=== PATIENT | female | born 1955 | race Caucasian/White ===

== ENCOUNTER → 2017-04-19 | Outpatient (CLI) | payer MEDICARE, MEDICAID ==
[~2017-04-19] MED LIST: ACE3 PO; ACE325 PO; ALE70 PO; AMIT-108 PO; ANU28T RC; ARIP5TAB28 PO; ATOR20TA22 PO; BAC10 PO; BACOUD TP; BEN5 PO; BISA10SU62 RC; CALC-762 PO; CALC1TAB24 PO; CEF300 PO; CEFD125S23; CHOL1CAP PO; CRAN500C12 PO; DOCU-194 PO; DULO30CA35 PO; DULO60CA51 PO; ESTR0.5T16 PO; EYEL1MED2 TP; FERR240T18 PO; GLIP10TA26 PO; GLY/85CR2 TP; GLY5 PO; GUAI-549 PO; HYDR-317 PO; HYDR28.415 TP; IRO150 PO; LACT10SO PO; LACTULOSE; LOM PO; LOPE-84 PO; LOR5 PO; LOSA50TA72 PO; MENT118G; METF-420 PO; METR250 PO; MIR; MIR PO; MOM PO; MULT-813 PO; MYLANTA SUPREME PO; NAP250 PO; NAPR220C11 PO; NITR-105 PO; OMEG-11 PO; OMEP-153 PO; OXYGEN INH; PHEN200T32 PO; PIOG30TA3 PO; PRAM28.33 RC; PREMARIN PO; RABE20TA33 PO; SEE LIST ON CHART; SIMV-42 PO; SITA100T9 PO; SITA1TAB17 PO; TOLN108P TP; TRA50 PO; VAL80 PO; [UNRECOGNIZED DRUG - CODE] DT; [UNRECOGNIZED DRUG - CODE] TP; [UNRECOGNIZED DRUG - OTHER]
--- NOTE | 2017-04-19 15:19 | RADIOLOGY IMAGING REPORT ---
FACILITY: [facility] - [place] PATIENT NAME: Tamra Wild : 1955 MR: [id number] V: [id number] EXAM DATE: ORDERING PHYSICIAN: EVGENY ARMENDARIZ TECHNOLOGIST: Location: [facility] - [place], [place] Patient: Tamra Wild : 1955 Visit/Account:[id number] Date of Sevice: 04/19/2017 2 VIEWS CHEST INDICATION: Cough. COMPARISON: 11/23/2008. FINDINGS: Cardiac silhouette remains mildly enlarged and somewhat eccentric abutting low lung volumes. Mediasti nal silhouette and pulmonary vessels within normal limits. The interstitial lungs are are mild eccentric from low lung volumes. No focal consolidation. There is no pneumothorax or pleural effusion. No nodule. Upper abdomen is unremarkable. No acute bony abnormality. Postsurgical changes to the lower cervical spine without sequelae. IMPRESSION: 1. Stable mild enlarged cardiac silhouette without discrete edema or infiltrate. Report Dictated By: Rohan Park at 04/19/2017 3:13 PM Report E-Signed By: Rohan Park at 04/19/2017 3:15 PM WSN:[id number]
== END ==
LOC: RAD 14:18
PROVIDERS: ATTEND Family Medicine
DX: R05 Cough (principal)
CPT/HCPCS: 71046

== ENCOUNTER 2017-08-25 10:53 | Outpatient (RCR) | payer MEDICARE, MEDICAID ==
[~2017-08-25 10:53] MED LIST changes: -BEN5 PO; +BENZ0.5T19 PO; -PIOG30TA3 PO; +PIOG30TA71 PO
--- NOTE | 2017-08-25 17:35 | Medical Nutrition Therapy ---
Nutrition Anthropometrics Weight (Pounds): 179 BMI: 36.5 Jarred Nutrition Score: Jarred Nutrition Risk Score: Dietary Referral Nutrition Risk Factors: Nutrition Risk Comment: Physical Findings Physical Appearance: Obese BMI 30-39 Skin Appearance Skin Appearance: Edema Edema Location Modifier: Edema Location: Type of Edema: Degree of Edema: Gastrointestinal Symptoms GI Symtoms: Tube Present: Bowel Sounds: Recent Bowel Pattern: Stool Characteristics: Nutritional Education Nutrition Education Topic: Weight Loss Diet Learning Readiness: Little Interest (pt showed little interest but caregivers were interested) Response to Teaching: Verbalize understanding (caregivers) Teaching Recipient: Patient, Primary Caregiver Nutrition Counseling: [facility] pt attended session on nutrition to assist with wt loss with diabetes. Pt did not show interest in session but care givers were interested. Discussed importance of correct portion of foods to assist with wt loss. Provided Exchange list diet with emphasis on food groups and how to incorporate this in main meal plan. Majority of session was spent developing healthy weekly meal plan with care givers. Care givers will f/u with meal ideas which will be reviewed by RD. Goal is to provide 4 week menu that works with pt's nutrtional needs. Nutrition Monitoring & Eval RD Patient Assessment Time: [address] Assessment Type: RD Re-Assessment Nutritional Comment: Provided 60 minutes MNT for diabetes with wt loss desired Copies To Copies to: JEFFREY ARAMBULA MD, BETH Jun 20, 2018 17:35
== END 2017-09-29 ==
LOC: DIET 10:53
PROVIDERS: ATTEND Psychiatry & Neurology Psychiatry
DX: Z71.3 Dietary counseling and surveillance (principal); E11.9 Type 2 diabetes mellitus without complications; F25.9 Schizoaffective disorder, unspecified; F79 Unspecified intellectual disabilities; Z68.35 Body mass index [BMI] 35.0-35.9, adult
CPT/HCPCS: 97802

== ENCOUNTER → 2018-01-31 | Outpatient (CLI) | payer MEDICARE, MEDICAID ==
[~2018-01-31] MED LIST changes: -DOCU-194 PO; +DOCU100C56 PO; +GLIP-179 PO; -GLIP10TA26 PO; -LOSA50TA72 PO; +LOSA50TA74 PO
--- NOTE | 2018-02-01 16:42 | RADIOLOGY IMAGING REPORT ---
FACILITY: [facility] PATIENT NAME: LORELEI CHEN : [id number] MR: [id number] V: [id number] EXAM DATE: [id number] ORDERING PHYSICIAN: MARTHA GUZMAN TECHNOLOGIST: Berkley Ruiz PROCEDURE:BILATERAL DIGITAL SCREENING MAMMOGRAM WITH CAD ASSISTED INTERPRETATION COMPARISON:Prior mammograms 01/25/14, 12/20/15, 12/12/14, 12/26/13. INDICATIONS:SCREENING FINDINGS: The patient received bilateral CC views of both breasts in addition to 2 Left MLO views and a Right XCC view sense a Right MLO view could not be obtained. Moderately heterogeneous fibroglandular tissue is seen throughout the breasts. The parenchymal pattern has remained stable allowing for difference in mammographic technique & patient positioning. There is no evidence of malignant appearing mass, malignant appearing calcifications or other secondary sign of malignancy in either breast. DIAGNOSTIC CATEGORY 1--NEGATIVE. RECOMMENDATIONS: ROUTINE MAMMOGRAM AND CLINICAL EVALUATION. IMPRESSION: BIRADS 1: Negative. No significant abnormality is seen. Dictated by: Shaneka Solano M.D. on 01/31/2018 at 16:31 Transcribed by: OLU on 02/01/2018 at 8:57 Approved by: Shaneka Solano M.D. on 02/01/2018 at 16:41 [facility]
== END ==
LOC: MAMO 06:58
PROVIDERS: ATTEND Nurse Practitioner Family
DX: Z12.31 Encounter for screening mammogram for malignant neoplasm of breast (principal)
CPT/HCPCS: 77063; 77067

== ENCOUNTER → 2018-04-18 | Outpatient (CLI) | payer MEDICARE, MEDICAID ==
[~2018-04-18] MED LIST changes: -LOSA50TA74 PO; +LOSA50TA80 PO
--- NOTE | 2018-04-18 12:51 | RADIOLOGY IMAGING REPORT ---
[place] [facility] [place] NAME[place] Tamra Wild : 1955 MR: [id number] V: [id number] EXAM DATE: ORDERING PHYSICIAN: DORINDA CRUZ TECHNOLOGIST: Location: [facility] - [place] Patient: Tamra Wild : 1955 Visit/Account:[id number] Date of Sevice: 04/18/2018 KUB SINGLE VIEW ABDOMEN INDICATION: Constipation, distention COMPARISON: August 09, 2015 FINDINGS: Two frontal views obtained. Unchanged postsurgical clip in the right upper abdomen. No organomegaly or abnormal calcifications. No dilated bowel loops. No acute osseous abnormality. Mod erate to large volume colonic stool. Chronic irregularity of the bilateral ischial tuberosities. IMPRESSION: Moderate to large volume colonic stool. Report Dictated By: Clay Barrios MD at 04/18/2018 12:45 PM Report E-Signed By: Clay Barrios MD at 04/18/2018 12:47 PM WSN:[id number]
== END ==
LOC: RAD 10:59
PROVIDERS: ATTEND Nurse Practitioner Family
DX: K59.00 Constipation, unspecified (principal)
CPT/HCPCS: 74018

== ENCOUNTER 2018-05-11 10:29 | Outpatient (RCR) | payer MEDICARE, MEDICAID ==
--- NOTE | 2018-02-16 14:52 | PT INITIAL EVALUATION ---
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 She had wound care and so had to stop pool therapy for a while. The PT's that work with Gustavo (an [facility] resident) aren't able to pick her up so she's come to [facility] for PT. Radha is her [facility] aide and relates Gustavo was a Frances lift transfer for all transfers and is non- ambulatory. Gustavo does talk but is shy today. REHAB PROBLEM LIST: Decreased ROM Decreased Strength Impaired Transfers Decreased Mobility PREVIOUS MEDICAL HISTORY: NIDDM, depression, CTR. Right-handed. OCCUPATION: Gustavo likes to color and work with her hands and misses pool therapy. OBJECTIVE: Posture: Wheel chair sitting posture ~ 40 degrees reclined, able to pull herself to 25 deg. reclines. L forefoot inverted, R forefoot adductus ROM: AROM: R hand opening to 0 deg. MTP's, wrist ext. 20, elbow extension 65 degrees, shoulder [id number] deg flexion, 80 deg. abduction. L hand opening to -40 deg. MTP's, flexor tone, wrist ext. 0 deg., tone, elbow extension 45 deg., tone, shoulder flexion 80 degrees, abd. 45 degrees, all tight soft tissue restrictions. PROM hips abd. 20 deg., flexion R 110 deg., L 90 deg., extension. -25 deg. B Strength: Knee extension R 15 deg., L no AROM extension. Special Tests: B UE flexor synergy postures. Negative B hip scour for joint pain. Mobility: Gustavo was able to grasp the Frances transfer bar with both hands, pull herself from 60 degrees reclined to about 30 deg. trunk flexion. She has difficulty WS with rotation L and R to help the aide get the sling under her ishial tuberosities and thighs. She can provide min. assist rolling R/L slightly both seated and supine to show unweighting of her back and pelvis. Supine resisted trunk rotation 1/3 trunk rotation. Balance: No sitting balance today. ASSESSMENT: Tamra Wild presents with contractures, flexor tone, potential to reduce dependency during transfers to improve bone loading, improve muscle balance for ability to WS in her wheelchair for pressure unloading. She was cooperative with BRYANT PRABHAKAR and gentle supine resistance training. Short Term Goals 4 weeks: Gustavo pulls herself forward to 0 deg. trunk flexion to assist with sliding the Frances sling, rolls R and L supine with mod. assist of one. 8 weeks: Gustavo demonstrate self-trunk rotation and WS L and R holding the Frances transfer bar to assist sliding the Frances sling under her ishial tuberosities, holding an aide's hands to unload ishial tuberosities, rolls supine/sidelie R/L with min. assist to unload pressures in bed. Patient's Goals Move more. PLAN: Patient to be seen for Manual Therapy Strengthening/condition Ice/Heat Range of Motion Spinal Stabilization Stretching Neuromuscular Re-ed Therapeutic Activities 2x/Week for 2 Months Thank you for this referral. If you have any questions, comments, or concerns about this report or plan, please contact me at . WILBERT
--- NOTE | 2018-03-23 17:55 | PT PLAN OF CARE ---
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 trunk flexion to assist with sliding the Frances sling progressing), rolls R and L supine with mod. assist of one (not met). 8 weeks: Gustavo demonstrate self-trunk rotation and WS L and R holding the Frances transfer bar to assist sliding the Frances sling under her ishial tuberosities (not met), holding an aide's hands to unload ishial tuberosities (progressing), rolls supine/sidelie R/L with min. assist to unload pressures in bed (not met). PATIENT'S GOAL: Move more. (progressing) Patient Compliance: Excellent Prognosis: Excellent Reasons for continuing therapy: S: Gustavo relates she feels better after PT. Posture: Wheel chair sitting posture 20 degrees reclined, able to pull herself to 0 degrees with hand held assist now. ROM: AROM: R elbow extension 35 degrees, shoulder flexion 90 deg flexion, 80 deg. abduction. L hand opening still the same with flexor tone limiting ROM, elbow extension 30 deg., shoulder flexion 80 degrees, abd. 55 degrees, all tight soft tissue restrictions. PROM hips abd. 30 deg., flexion R 110 deg., L 100 deg., extension remains -25 deg. B Strength: Knee extension 0 deg. B. Gustavo can now pull with lats and scapular retractors to assist supine to sit. Special Tests: B UE flexor synergy postures. Negative B hip scour for joint pain. Mobility: Gustavo can now pull with lats and scapular retractors to assist supine to sit. She needs mod/max assist to WS L and R. She tolerates sitting upright 15 to 23 minutes with mod. assist to max. assist of one with her feet supported. She can punch her L and R UE [address] her coat sleeve and now pulls herself to 25 deg past neutral so the back of her coat or sling can be tucked behind her. A/P: Gustavo Wild is progressing with assisting in mobility, transfers and dressing, which helps with digestion, ease of caregiver burden and bone loading. If you agree, we'll continue 2x/week another month to goals set, then decide where to go from there. Thank you. WILBERT
[~2018-05-11 10:29] MED LIST changes: -NAPR220C11 PO; +NAPR220C62 PO
== END 2018-05-17 ==
LOC: PT 10:29
PROVIDERS: ATTEND Nurse Practitioner Family
DX: G82.20 Paraplegia, unspecified (principal)
CPT/HCPCS: 97162

== ENCOUNTER 2018-07-07 13:03 | Emergency (ER) | payer MEDICARE, MEDICAID ==
--- NOTE | 2018-07-07 13:06 | ER Report ---
History and Physical Time Seen By MD: 13:05 HPI/ROS CHIEF COMPLAINT: Here for cath ua/cx HISTORY OF PRESENT ILLNESS: Patient is a 62-year-old female who is a resident of the [facility]. According to care worker there is some concern that the patient may have a urinary tract infection. They noted with her going to the bathroom this morning she had some strong foul-smelling urine. She is complaining of some lower abdominal pain. Patient is followed by Dr. Contreras and she was referred to the emergency department for us to obtain a urinalysis and urine culture. He doesn't seem to be eating normally perhaps some slight constipation, no vomiting or diarrhea and no fevers. Allergies: Coded Allergies: granisetron (Unverified Allergy, Unknown, 08/09/15) ibuprofen (Unverified Allergy, Unknown, 08/09/15) lisinopril (Verified Allergy, Unknown, 08/09/15) tetracycline (Verified Allergy, Unknown, 08/09/15) Uncoded Allergies: ADVIL TABLET (Allergy, Unknown, 08/16/06) GANTRISAN (Allergy, Unknown, 08/16/06) METALS (Allergy, Unknown, 08/16/06) PEANUTS (Allergy, Unknown, 08/16/06) Home Meds Active Scripts Cephalexin 500 Mg Tab (KEFLEX 500 MG TAB) 500 Mg Tablet, 500 MG PO Q6H, #20 TAB 0 Refills TAKE ONE TABLET BY MOUTH EVERY SIX HOURS Prov:RYDER GARCIA MD 07/07/18 Reported Medications Estradiol (ESTRADIOL) 0.5 Mg Tablet, 0.5 MG PO DAILY 09/03/16 Ferrous Gluconate (FERROUS GLUCONATE) 240 Mg Tablet, 240 MG PO DAILY 09/03/16 Losartan Potassium (LOSARTAN POTASSIUM) 50 Mg Tablet, 50 MG PO QDAY 09/03/16 Benztropine Mesylate (BENZTROPINE MESYLATE) 0.5 Mg Tab, 0.5 MG PO BID, TAB 09/03/16 Duloxetine Hcl (CYMBALTA) 30 Mg Capsule.dr, 30 MG PO QDAY 09/03/16 Atorvastatin Calcium (LIPITOR) 20 Mg Tablet, 1 TAB PO QDAY, TAB 09/03/16 Bisacodyl (BISACODYL) 10 Mg Supp.rect, 10 MG RC PRN for CONSTIPATION, SUPP.RECT 6/29/17 Pramoxine Hcl/Mineral Oil/Znox (TUCKS HEMORRHOIDAL OINTMENT) 28.3 Gm Oint...g., 28.3 GM RC PRN for PAIN 10/16/14 Tolnaftate (TINACTIN) 108 Gm Powder, 108 GM TP BID 10/16/14 Skin Cleanser (PERIFRESH) 3,840 Ml Cleanser, 3840 ML TP BID 10/16/14 Eyelid Cleanser Combination #3 (OCUSOFT LID SCRUB PLUS) 1 Each Med..pad, 1 EACH TP QWEEK 10/16/14 Naproxen Sodium (NAPROXEN SODIUM) 220 Mg Capsule, 220 MG PO PRN for PAIN, CAPSULE 10/16/14 [Mylanta Coplay ] No Conflict Check, 20 ML PO PRN for DYSPEPSIA 10/16/14 Hydrocortisone/Aloe Vera (HYDROCORTISONE 1% OINTMENT) 28 Gm Oint...g., 28 GM TP PRN for ITCHING 10/16/14 Docusate Sodium (DOC-Q-LACE) 100 Mg Capsule, 100 MG PO QDAY, CAPSULE 10/16/14 Cranberry Extract (CRANBERRY CONCENTRATE) 500 Mg Capsule, 500 MG PO QDAY, CAP BHARATHI 10/16/14 Multivitamin (CHEWABLE-CHRISSY) 1 Each Tab.chew, 1 EACH PO QDAY, TAB.CHEW 10/16/14 Menthol (BIOFREEZE) 118 Ml Gel..ml. 10/16/14 Bacitracin (BACITRACIN ZINC) 0.9 Gm Oint, 0.9 GM TP PRN for INFECTION 10/16/14 Gly/Dimeth/Petrolat,Wht/Water (CETAPHIL MOISTURIZING CREAM) 85 Gm Cream..g., 85 GM TP BID 10/16/14 [Aquaphillic Cream] No Conflict Check 10/16/14 Calcium Carbonate/Mag Hydrox (ANTACID CHEWABLE TABLET) 1 Each Tab.chew, 2 EACH PO PRN for DYSPEPSIA, TAB.CHEW 10/16/14 Pioglitazone Hcl (PIOGLITAZONE HCL) 30 Mg Tablet, 30 MG PO QDAY 10/16/14 Glipizide (GLIPIZIDE ER) 10 Mg Tab.er.24, 10 MG PO QDAY 10/16/14 Sitagliptin Phos/Metformin Hcl (JANUMET 50-1,000 MG TABLET) 1 Each Tablet, 1 EACH PO BID 10/16/14 Oxygen (Oxygen) 2 L Inha, 2 L INH PRN, 0 Refills 10/30/10 Omeprazole (Omeprazole) 20 Mg Tablet.dr, 20 MG PO, 0 Refills 10/30/10 Acetaminophen (Tylenol) 325 Mg Tab, 650 MG PO PRN, 0 Refills EVERY SIX HOURS PRN 10/30/10 [Premarin ] No Conflict Check, 0.3 MG PO DAILY, 0 Refills 10/30/10 Calcium Carbonate/Vitamin D3 (Calcium 500 + D Tablet) 1 Tab Tablet, 1 TAB PO BID, 0 Refills 10/30/10 Aripiprazole (Abilify) 5 Mg Tablet, 7 MG PO DAILY, 0 Refills 10/30/10 Amitriptyline Hcl (Elavil) 50 Mg Tablet, 50 MG PO DAILY, 0 Refills 10/30/10 Baclofen (Lioresal) 10 Mg Tab, 10 MG PO TID, 0 Refills 10/30/10 Duloxetine Hcl (Cymbalta) 60 Mg Capsule.dr, 60 MG PO DAILY, 0 Refills 10/30/10 Docosahexanoic Acid/Epa (Fish Oil 1,000 Mg Capsule) 1 Cap Capsule, 1 CAP PO BID, 0 Refills 10/30/10 Polyethylene Glycol (Miralax) 17 Gm Powd, PO DAILY, 0 Refills 10/30/10 Past Medical/Surgical History Constipation, type II diabetes, hypercholesterolemia Hx Smoking: No Smoking Status: Never Smoker Exposure to Second Hand Smoke?: No Hx Substance Use Disorder: No Hx Alcohol Use: No Constitutional Vital Sign - Last 24 Hours 07/07/18 13:21 Temp 98.2 Pulse 101 Resp 20 B/P (MAP) 139/71 Pulse Ox 90 O2 Delivery Room Air Intake and Output0 07/07/18 07/07/18 07/08/18 15:00 23:00 07:00 Output Total 7 ml Balance -7 ml Physical Exam General Appearance: The patient is alert, has no immediate need for airway protection and no current signs of toxicity. [ ] Eyes: Pupils equal and round no injection. Respiratory: Chest is non tender, lungs are clear to auscultation. Cardiac: regular rate and rhythm Gastrointestinal: Abdomen is protuberant; no obvious signs of tenderness to palpation. Musculoskeletal: Extremities warm and well perfused. Medical Decision Making Data Points Laboratory Hematology Test 07/07/18 13:50 Urine Color Yellow Urine Clarity Cloudy Urine pH 5.0 pH (4.8-9.5) Urine Specific [place] 1.017 Urine Protein 30 mg/dL (NEGATIVE) Urine Glucose (UA) Negative mg/dL (NEGATIVE) Urine Ketones Negative mg/dL (NEGATIVE) Urine Blood Moderate (NEGATIVE) Urine Nitrite Negative (NEGATIVE) Urine Bilirubin Negative (NEGATIVE) Urine Urobilinogen 2.0 mg/dL (0.2-1.9) Urine Leukocyte Esterase Large (NEGATIVE) Urine RBC 26 /HPF (0-2/HPF) Urine WBC 130 /HPF (0-5/HPF) Urine WBC Clumps Mod /HPF Urine Squamous Epithelial Cells Many /LPF (NONE-FEW) Urine Bacteria Many /HPF (NONE-FEW) Urine Mucus None /HPF (NONE-FEW) Chemistry Test 07/07/18 13:50 Urine Color Yellow Urine Clarity Cloudy Urine pH 5.0 pH (4.8-9.5) Urine Specific Clinton 1.017 Urine Protein 30 mg/dL (NEGATIVE) Urine Glucose (UA) Negative mg/dL (NEGATIVE) Urine Ketones Negative mg/dL (NEGATIVE) Urine Blood Moderate (NEGATIVE) Urine Nitrite Negative (NEGATIVE) Urine Bilirubin Negative (NEGATIVE) Urine Urobilinogen 2.0 mg/dL (0.2-1.9) Urine Leukocyte Esterase Large (NEGATIVE) Urine RBC 26 /HPF (0-2/HPF) Urine WBC 130 /HPF (0-5/HPF) Urine WBC Clumps Mod /HPF Urine Squamous Epithelial Cells Many /LPF (NONE-FEW) Urine Bacteria Many /HPF (NONE-FEW) Urine Mucus None /HPF (NONE-FEW) Urinalysis Test 07/07/18 13:50 Urine Color Yellow Urine Clarity Cloudy Urine pH 5.0 pH (4.8-9.5) Urine Specific Clinton 1.017 Urine Protein 30 mg/dL (NEGATIVE) Urine Glucose (UA) Negative mg/dL (NEGATIVE) Urine Ketones Negative mg/dL (NEGATIVE) Urine Blood Moderate (NEGATIVE) Urine Nitrite Negative (NEGATIVE) Urine Bilirubin Negative (NEGATIVE) Urine Urobilinogen 2.0 mg/dL (0.2-1.9) Urine Leukocyte Esterase Large (NEGATIVE) Urine RBC 26 /HPF (0-2/HPF) Urine WBC 130 /HPF (0-5/HPF) Urine WBC Clumps Mod /HPF Urine Squamous Epithelial Cells Many /LPF (NONE-FEW) Urine Bacteria Many /HPF (NONE-FEW) Urine Mucus None /HPF (NONE-FEW) ED Course/Re-evaluation ED Course 07/07/2018 1:38:32 pm plan at this time will be to perform catheter urinalysis and urine culture. Urinalysis is likely positive for infection was sent for culture and start the patient on oral cephalexin Decision to Disposition Date: July 07, 2018 Decision to Disposition Time: 14:11 Depart Departure Latest Vital Signs Vital Signs Date Time Temp Pulse Resp B/P (MAP) Pulse Ox O2 Delivery O2 Flow Rate FiO2 07/07/18 13:21 98.2 101 20 139/71 90 Room Air Impression: Primary Impression: Urinary tract infection Condition: Improved Disposition: HOME OR SELF-CARE Referrals: MARTHA GUZMAN FOOT CUTTER (PCP) LOUIS CONTRERAS MD New Scripts Cephalexin 500 Mg Tab (KEFLEX 500 MG TAB) 500 Mg Tablet 500 MG PO Q6H, #20 TAB 0 Refills TAKE ONE TABLET BY MOUTH EVERY SIX HOURS Prov: RYDER GARCIA MD 07/07/18 Patient Instructions: Urinary Tract Infection in Women (ED) Problem Qualifiers Primary Impression: Urinary tract infection Urinary tract infection type: acute cystitis Hematuria presence: without hematuria Qualified Codes: N30.00 - Acute cystitis without hematuria RYDER GARCIA MD July 07, 2018 13:06
[2018-07-07 13:21] VITALS: BP 139/71
[2018-07-07] MEDS ORDERED: CEPHALEXIN MONO 500 MG CAP PO ONE (14:10)
[2018-07-07] MEDS ORDERED: CEPH500T7 PO (14:14)
== END 2018-07-07 14:20 | disposition home or self-care (01) ==
LOC: ER 13:25
DX: N30.00 Acute cystitis without hematuria (principal)
CPT/HCPCS: 81001; 87077; 87088; 87186; 99283; A4353; A9270

== ENCOUNTER 2018-08-03 10:30 | Outpatient (RCR) | payer MEDICARE, MEDICAID ==
--- NOTE | 2018-06-01 12:09 | PT PLAN OF CARE ---
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 trunk flexion to assist with sliding the Frances sling (met) rolls R and L supine with mod. assist of one (progressing). 8 weeks: Gustavo demonstrate self-trunk rotation (not met) and WS L and R holding the Frances transfer bar to assist sliding the Frances sling under her ishial tuberosities (progressing), holding an aide's hands to unload ishial tuberosities (met), rolls supine/sidelie R/L with min. assist to unload pressures in bed (not met). PATIENT'S GOAL: Move more (progressing) Patient Compliance: Excellent Prognosis: Excellent Reasons for continuing therapy: S: Charlene's care givers report she's sitting more upright with dressing, shoves her R>L UE into her coat sleeve. Posture: Charlene is now able to pull herself to 0 deg. with wheelchair seat 25 deg. reclined with hand held assist or Frances lift bar. ROM: AROM: R elbow extension 25 degrees, shoulder flexion 110 deg flexion, 90 deg. abduction. L hand PROM opening to 0 deg. MTP's, flexor tone, wrist ext. 0 deg., tone, elbow extension 25 deg., tone, shoulder flexion 110 deg., abd. 80 degrees, all tight soft tissue restrictions. PROM hips abd. 30 deg., flexion R 115 deg., L 100 deg., extension. -25 deg. B. PROM knee ext. spine L 25 deg., R 20 degrees. Strength: Unchanged. Special Tests: B UE flexor synergy postures. Modified Jeffry elbows R now 2/4, L 3/4, knee extension R 2/4, L 3/4. Mobility: Charlene is mod/max assist x1 for rolling on the mat table, sits unsupported EOB 1 minute, sitting endurance 17 min. with min/mod assist x1. She's able to sit and reach forward, low L and R, seated functional reach ~5". A/P: Tamra Wild is improving tone reduction, sitting endurance and balance which is good for digestion, bone loading. If you agree, we'll continue 1x/2 weeks through 2019 if her funding allows. Thank you. Family Nurse Practitioner signature date MTDD
[~2018-08-03 10:30] MED LIST changes: +CEPH500T7 PO
== END 2018-08-03 18:00 | disposition home or self-care (01) ==
LOC: PT 10:30
PROVIDERS: ATTEND Nurse Practitioner Family
DX: G80.8 Other cerebral palsy (principal)